=== PATIENT | male | born 1990 | race Caucasian/White ===

== ENCOUNTER 2022-03-31 18:49 | Emergency (ER) | payer SELFPAY ==
[2022-03-31 18:59] VITALS: BP 111/74; PULSE 87; RESP 17; TEMP 37.1; O2SAT 96; BMI 25.0
--- NOTE | 2022-03-31 19:51 | CTR_ITS ---
PROCEDURE INFORMATION: Exam: CT Abdomen And Pelvis Without Contrast Exam date and time: 03/31/2022 8:06 PM Age: 31 years old Clinical indication: Abdominal pain; Right; Patient HX: R flank pain w gross hematuria; Additional info: Right flank pain, hematuria TECHNIQUE: Imaging protocol: Computed tomography of the abdomen and pelvis without contrast. Radiation optimization: All CT scans at this facility use at least one of these dose optimization techniques: automated exposure control; mA and/or kV adjustment per patient size (includes targeted exams where dose is matched to clinical indication); or iterative reconstruction. COMPARISON: No relevant prior studies available. RADIATION DOSE METRICS: Total DLP (mGy-cm): 390.73 FINDINGS: Liver: Unremarkable.No mass. Gallbladder and bile ducts: Normal. No calcified stones. No ductal dilation. Pancreas: The pancreas is normal. Spleen: The spleen is normal. Adrenal glands: The adrenal glands are normal. Kidneys and ureters: There is no evidence of hydronephrosis. There is no evidence of renal calcifications. There is a 1.5 mm calculus distal right ureter at the level of the right hip joint series 3, image 186. No calculi in the left ureter or bladder. Stomach and bowel: There is no evidence of intestinal perforation or obstruction. The colon is mostly collapsed however the wall of the colon appears prominent and there is haziness of the adjacent fat concerning for mild diffuse colitis. The loops of small bowel have an appropriate appearance. Appendix: A normal appendix is identified. Intraperitoneal space: Unremarkable. No free air. No significant fluid collection. Vasculature: The aorta is normal. Lymph nodes: Unremarkable.No enlarged lymph nodes. Urinary bladder: There is nonspecific bladder wall thickening. This may be related to incomplete distention. Reproductive: Unremarkable as visualized. Bones/joints: Unremarkable. No acute fracture. Soft tissues: There is a fat-containing umbilical hernia. CT/CT kidney stone 12258 IMPRESSION: 1. There is a 1.5 mm calculus distal right ureter at the level of the right hip joint. No hydronephrosis. 2. The colon is mostly collapsed however the wall of the colon appears prominent/thickened for the degree of distension and there is haziness of the adjacent fat concerning for mild diffuse colitis. No fluid collection, abscess or free air.
--- NOTE | 2022-03-31 19:57 | ED_ITS ---
HPI - Male Genitourinary General: Chief complaint: Urogenital-Male Stated complaint: Back/side pain Time Seen by Provider: 03/31/22 19:50 Source: patient History of Present Illness: 31-year-old male with no prior history of kidney disease, or hematuria. He notes that he had an episode of bright red bloody urination last night. It was painless at the time. Today, he noted that his urine was still quite dark. He has had intermittent mild to moderate right sided low back and flank pain as well. No fever. No vomiting. No diarrhea no blood from any other orifice. No penile discharge MD Complaint: other Onset (ago): hour(s) Duration: intermittent Location: right flank Radiation: right flank Severity: moderate Quality: aching Relieving factors: none Exacerbating factors: none Associated symptoms: Reports hematuria; Deny discharge, dysuria, fevers/chills, nausea, urinary incontinence, urinary retention or vomiting Review of Systems Const: Denies: fever(s) or chills Card: Denies: chest pain Resp: Denies: dyspnea GI: Denies: abdominal pain, nausea, vomiting or diarrhea : Reports: hematuria; Denies: dysuria or urinary incontinence Musc: Reports: back pain Physical Exam Const: COMMON NORMALS: no acute distress GENERAL APPEARANCE: cooperative; not ill appearing HENMT: COMMON NORMALS: normocephalic and atraumatic HEAD & SCALP: normocephalic and atraumatic Eye: COMMON NORMALS: Equal, round and reactive pupils present and EOMs intact bilaterally PUPIL: Yes Equal, round and reactive pupils present Neck/C-Spine: GENERAL: Yes trachea midline Chest: CHEST: Yes Symmetrical chest wall rise Resp: COMMON NORMALS: normal respiratory effort, No use of accessory muscles and clear to auscultation bilaterally AUSCULTATION: clear to auscultation bilaterally Cardio: COMMON NORMALS: regular rate and regular rhythm RATE: regular rate RHYTHM: regular rhythm GI: COMMON NORMALS: Normal to inspection, nondistended, normoactive bowel sounds present, Soft to palpation and non-tender PALPATION: Yes Soft to palpation : BLADDER/KIDNEY EXAM: Yes CVA tenderness on the right Back/Pelvis: GENERAL BACK: Yes CVA tenderness Extremity: COMMON NORMALS: normal to inspection Neuro: KHADIJAH COMA SCALE: document [facility] findings Khadijah coma scale eye opening: Spontaneous [place] coma scale verbal response: Orientated Khadijah coma scale motor response: Obey commands Khadijah coma scale total score: 15 Course Vital Signs: Vital signs: Vital Signs Temperature 98.7 F 03/31/22 18:59 Pulse Rate 87 03/31/22 18:59 Respiratory Rate 17 03/31/22 18:59 Blood Pressure 111/74 03/31/22 18:59 Pulse Oximetry 96 03/31/22 18:59 Oxygen Delivery Me thod 03/31/22 18:59 MDM - Male Medical Decision Making Urinalysis shows 0-4 whites 0-4 reds. White blood cell count is 8. Hemoglobin is 15. Platelet count is normal at 275. CRP is negative. Patient has a 1.5 mm ureteral stone at the level of the hip. Likely the cause of his hematuria and mild flank pain. There is no hydronephrosis Lab Data : 03/31/22 19:50 03/31/22 19:50 Radiology Impressions Abdomen/Pelvis CT 03/31/22 19:51 IMPRESSION: 1. There is a 1.5 mm calculus distal right ureter at the level of the right hip joint. No hydronephrosis. 2. The colon is mostly collapsed however the wall of the colon appears prominent/thickened for the degree of distension and there is haziness of the adjacent fat concerning for mild diffuse colitis. No fluid collection, abscess or free air. Laboratory Results WBC 8.0 10^3/uL (4.0-10.0) 03/31/22 19:50 RBC 5.11 10^6/uL (4.1-5.3) 03/31/22 19:50 Hgb 15.6 g/dL (11.7-16.6) 03/31/22 19:50 Hct 46.7 % (42.0-52.0) 03/31/22 19:50 MCV 91.4 fl (80-94) 03/31/22 19:50 MCH 30.5 pg (28.0-34.0) 03/31/22 19:50 MCHC 33.4 g/dL (30.0-36.0) 03/31/22 19:50 RDW 12.8 % (12.1-15.1) 03/31/22 19:50 Plt Count 275 10^3/cmm (130-400) 03/31/22 19:50 MPV 10.8 fL (7.4-10.4) H 03/31/22 19:50 Neut % (Auto) 56.1 % 03/31/22 19:50 Lymph % (Auto) 31.8 % 03/31/22 19:50 [place] % (Auto) 9.5 % 03/31/22 19:50 Eos % (Auto) 2.1 % 03/31/22 19:50 Baso % (Auto) 0.4 % 03/31/22 19:50 Neut # (Auto) 4.47 10^3/uL (1.8-7.7) 03/31/22 19:50 Lymph # (Auto) 2.5 10^3/uL (0.8-4.8) 03/31/22 19:50 [place] # (Auto) 0.8 10^3/uL (0.2-0.9) 03/31/22 19:50 Eos # (Auto) 0.2 10^3/uL (0.0-0.8) 03/31/22 19:50 Baso # (Auto) 0.0 10^3/uL (0.0-0.1) 03/31/22 19:50 Nucleated RBC % (auto) 0 % 03/31/22 19:50 Nucleated RBCs # 0.0 /100WBC 03/31/22 19:50 Sodium 138 mmol/L (136-145) 03/31/22 19:50 Potassium 3.6 mmol/L (3.5-5.1) 03/31/22 19:50 Chloride 101 mmol/L (98-107) 03/31/22 19:50 Carbon Dioxide 28 mmol/L (22-29) 03/31/22 19:50 Anion Gap 12.6 (5-19) 03/31/22 19:50 BUN 9 mg/dL (6-20) 03/31/22 19:50 Creatinine 0.8 mg/dL (0.7-1.2) 03/31/22 19:50 GFR Calculation 111.3 mL/min (90-130) 03/31/22 19:50 Glucose 89 mg/dL (65-115) 03/31/22 19:50 Calculated Osmolality 284 mOsm/kg (285-295) L 03/31/22 19:50 Calcium 9.2 mg/dL (8.5-10.5) 03/31/22 19:50 Total Bilirubin 0.5 mg/dL (0.15-1.2) 03/31/22 19:50 AST 25 U/L (0-40) 03/31/22 19:50 ALT 18 U/L (0-41) 03/31/22 19:50 Alkaline Phosphatase 63 IU/L (40-130) 03/31/22 19:50 C-Reactive Protein 3.7 mg/L (0.0-4.9) 03/31/22 19:50 Total Protein 6.7 g/dL (6.6-8.7) 03/31/22 19:50 Albumin 4.5 g/dL (3.5-5.2) 03/31/22 19:50 Globulin 2.2 g/dL (1.3-4.6) 03/31/22 19:50 Urine Color Yellow (Yellow) 03/31/22 19:25 Urine Appearance Clear (CLEAR) 03/31/22 19:25 Urine pH 7 (5-7) 03/31/22 19:25 Ur Specific [place] 1.015 (1.005-1.030) 03/31/22 19:25 Urine Protein 1+ (Negative) H 03/31/22 19:25 Urine Glucose (UA) Norm (Normal) 03/31/22 19:25 Urine Ketones Negative (Negative) 03/31/22 19:25 Urine Blood Neg (Negative) 03/31/22 19:25 Urine Nitrate Negative (Negative) 03/31/22 19:25 Urine Bilirubin 1+ (Negative) H 03/31/22 19:25 Urine Urobilinogen 8 mg/dL (Negative) H 03/31/22 19:25 Ur Leukocyte Esterase Negative (Negative) 03/31/22 19:25 Urine RBC 0-4 /hpf (0-2) H 03/31/22 19:25 Urine WBC 0-4 /hpf (0-5) H 03/31/22 19:25 Ur Squamous Epith Cells 0-4 /hpf (0-5) H 03/31/22 19:25 Amorphous Sediment 1+ /hpf 03/31/22 19:25 Urine Bacteria Trace /hpf (NONE) 03/31/22 19:25 Urine Mucus 1+ /hpf 03/31/22 19:25 Discharge Plan Discharge Patient Disposition: Home Clinical Impression: Ureterolithiasis Condition: Stable Prescriptions: New tamsulosin [Flomax] 0.4 mg capsule 0.4 mg PO DAILY Qty: 7 0RF ketorolac 10 mg tablet 10 mg PO TID PRN (Reason: pain) Qty: 10 0RF Discharge Orders: Discharge ED (Routine); Ordered 03/31/22 Ordered By: River Noel Patient Instructions: Kidney Stones (ED) Activity Restrictions/Additional Instructions: Drink plenty of liquids the next 48 hours. Use medication for pain as needed. The Flomax will help you pass your stone. Return for worsening pain despite treatment, inability to urinate, vomiting liquids or medications, fever greater than 100, any other concerning symptoms Coding Level of Care Code ED Facilities Director for Jaylan Fwd Exam Comprehensive
[2022-03-31 20:03] LABS: Add Urine Microscopic? YES; Bilirubin Urine 1+ (Negative); Blood Urine Neg (Negative); Glucose Urine UA Norm (Normal); Ketones Urine Negative (Negative); Leukocyte Esterase Urine Negative (Negative); Nitrate Urine Negative (Negative); Protein Urine 1+ (Negative); Specific Gravity, Urine 1.015 (1.005-1.030); Urine Appearance Clear (CLEAR); Urine Color Yellow (Yellow); Urobilinogen Urine 8 mg/dL (Negative); pH Urine 7 (5-7)
[2022-03-31 20:04] LABS: Add Urine Culture? No; Amorphous Sediment Urine 1+ /hpf; Bacteria Urine TRACE /hpf; Mucus Urine 1+ /hpf; RBC Urine 0-4 /hpf (0-2); Squamous Epithelial Cell Urine 0-4 /hpf (0-5); WBC Urine 0-4 /hpf (0-5)
[2022-03-31 20:20] LABS: Basophils % 0.4 %; Eosinophils # 0.2 10^3/uL (0.0-0.8); Eosinophils % 2.1 %; Hematocrit 46.7 % (42.0-52.0); Hemoglobin 15.6 g/dL (11.7-16.6); Lymphocytes # 2.5 10^3/uL (0.8-4.8); Lymphocytes % 31.8 %; Mean Corpuscular HGB Conc 33.4 g/dL (30.0-36.0); Mean Corpuscular Hemoglobin 30.5 pg (28.0-34.0); Mean Corpuscular Volume 91.4 fl (80-94); Mean Platelet Volume 10.8 fL (7.4-10.4); Monocytes # 0.8 10^3/uL (0.2-0.9); Monocytes % 9.5 %; Neutrophils # 4.47 10^3/uL (1.8-7.7); Neutrophils % 56.1 %; Nucleated Red Blood Cells % 0 %; Platelet Count 275 10^3/cmm (130-400); Red Blood Count 5.11 10^6/uL (4.1-5.3); Red Cell Distribution Width 12.8 % (12.1-15.1)
[2022-03-31] MEDS: sodium chloride 0.9% 1,000 ML 999 ML IV ×2 (20:25→21:24)
[2022-03-31 20:42] LABS: Alanine Aminotransferase 18 U/L (0-41); Albumin Level 4.5 g/dL (3.5-5.2); Alkaline Phosphatase 63 IU/L (40-130); Anion Gap 12.6 (5-19); Aspartate Amino Transferase 25 U/L (0-40); Blood Urea Nitrogen 9 mg/dL (6-20); C Reactive Protein 3.7 mg/L (0.0-4.9); Calcium 9.2 mg/dL (8.5-10.5); Carbon Dioxide 28 mmol/L (22-29); Chloride 101 mmol/L (98-107); Globulin 2.2 g/dL (1.3-4.6); Glomerular Filtration Rate 111.3 mL/min (90-130); Glucose 89 mg/dL (65-115); Osmolality Calculated 284 mOsm/kg (285-295); Potassium 3.6 mmol/L (3.5-5.1); Sodium 138 mmol/L (136-145); Total Bilirubin 0.5 mg/dL (0.15-1.2); Total Protein 6.7 g/dL (6.6-8.7)
[2022-03-31 21:43] VITALS: BP 115/70; RESP 18; O2SAT 100
== END 2022-03-31 21:45 | disposition home or self-care (01) ==
PROVIDERS: Emergency Provider Emergency Medicine
DX: N20.1 Calculus of ureter (principal)
CPT/HCPCS: 74176; 80053; 81001; 85025; 86140; 96360; 99284; J7030

== ENCOUNTER 2022-09-09 08:41 | Emergency (ER) | payer SELFPAY ==
--- NOTE | 2022-09-09 08:57 | ED_ITS ---
HPI - Ear Problem General: Chief complaint: Ear Stated complaint: ear infection Time Seen by Provider: 09/09/22 08:43 History of Present Illness: Patient is a 32-year-old male comes to the ED with left ear pain. Symptoms started approximately 3 days ago. He states he is having pain in his left ear that he rates a 5 out of 10. He also endorses having some white puslike drainage from his left ear as well. He has been having nasal congestion and drainage for the past couple days leading up to her ear symptoms. Endorses subjective fevers. Denies any nausea/vomiting, cough, or any other upper respiratory symptoms. Associated symptoms: Reports ear or mastoid pain (Left ear); Denies fever(s), headache(s) or neck pain Review of Systems Const: Denies: fever(s), chills or fatigue Eyes: Denies: change in vision or eye discomfort ENMT: Reports: ear or mastoid pain (Left ear) and ear discharge (White dischar ge from left ear); Denies: throat pain, odynophagia, nasal discharge or nasal congestion Card: Denies: chest pain, palpitations, edema, swelling of feet/ankles, dyspnea on exertion or orthopnea Resp: Denies: dyspnea, productive cough or non-productive cough GI: Denies: abdominal pain, nausea, vomiting, diarrhea, constipation or hematochezia : Denies: flank pain, difficulty urinating, dysuria or hematuria Musc: Denies: neck pain, back pain or extremity swelling Skin/Breast: Denies: rash or new lesions Neuro: Denies: headache(s), numbness in extremities or weakness in extremities [facility] ED PFSH: Medical History (Updated 09/09/22 @ 11:34 by PAVEL Francois) No pertinent family history Surgical History (Updated 09/09/22 @ 11:34 by PAVEL Francois) No pertinent past surgical history Physical Exam Const: COMMON NORMALS: no acute distress, patient oriented x3 and alert GENERAL APPEARANCE: cooperative and comfortable HENMT: COMMON NORMALS: normocephalic HEAD & SCALP: normocephalic EXTERNAL AUDITORY CANAL: Abnormal EAC present EAC laterality: left Details: otic discharge Details: purulent discharge TYMPANIC MEMBRANE: TM abnormal TM laterality: left Details: erythematous and perforation Details: purulent discharge MOUTH: Normal oral and palatal mucosa present THROAT: posterior oropharynx normal and uvula midline Neck/C-Spine: COMMON NORMALS: supple GENERAL: Yes normal visual inspection Resp: COMMON NORMALS: normal respiratory effort, No retractions, No use of accessory muscles and clear to auscultation bilaterally AUSCULTATION: clear to auscultation bilaterally Cardio: COMMON NORMALS: regular rate, regular rhythm, S1 normal heart sound present, S2 normal heart sound present, No gallops present (Cardio), No clicks present (Cardio), No murmurs present (Cardio) and Peripheral pulses 2+ throughout RATE: regular rate RHYTHM: regular rhythm HEART SOUNDS: S1 normal heart sound present and S2 normal heart sound present PERIPHERAL PULSES: Peripheral pulses 2+ throughout GI: COMMON NORMALS: Normal to inspection, nondistended, normoactive bowel sounds present, Soft to palpation, non-tender and no masses PALPATION: Yes Soft to palpation : COMMON NORMALS: Yes no CVA tenderness BLADDER/KIDNEY EXAM: Yes no CVA tenderness Back/Pelvis: COMMON NORMALS: no CVA tenderness Extremity: COMMON NORMALS: normal to inspection Neuro: COMMON NORMALS: patient oriented x3 SENSORIUM/ORIENTATION: Yes alert GAIT: Yes Normal gait present Skin: GENERAL SKIN EXAM: dry skin Course Vital Signs: Vital signs: Vital Signs Temperature 97.9 F 09/09/22 09:03 Pulse Rate 83 09/09/22 09:03 Respiratory Rate 14 09/09/22 09:03 Blood Pressure 119/60 09/09/22 09:03 Pulse Oximetry 97 09/09/22 09:03 Oxygen Delivery Me thod 09/09/22 09:03 MDM - Ear Medical Decision Making Patient is a 32-year-old male comes to the ED with left ear pain. He has been having some purulent discharge as well. Vitals are stable. Exam shows otitis media with spontaneous rupture and purulent discharge. Patient was discharged home with a prescription for Ciprodex eardrops and Augmentin. Told to follow-up with PCP in the next week for reevaluation. Return to ED precautions given. Patient understood and agreed with plan. Discharge Plan Discharge Patient Disposition: Home Clinical Impression: Otitis media Qualifiers: Otitis media type: suppurative Chronicity: acute Laterality: left Recurrence: non-recurrent Spontaneous tympanic membrane rupture: with spontaneous rupture Qualified Code(s): H66.012 - Acute suppurative otitis media with spontaneous rupture of ear drum, left ear Condition: Stable Prescriptions: New Augmentin 500-125 mg tablet 1 tab PO BID 10 Days Qty: 20 0RF Ciprodex 0.3-0.1 % drops,suspension 4 drp otic (ear) BID 7 Days Qty: 7.5 0RF No Action Flomax 0.4 mg capsule 0.4 mg PO DAILY Qty: 7 0RF ketorolac 10 mg tablet 10 mg PO TID PRN (Reason: pain) Qty: 10 0RF Discharge Orders: Discharge ED (Routine); Ordered 09/09/22 Ordered By: Maikel Cowart Discharge Diet: Regular Discharge Activity: Increase activity as tolerated Patient Instructions: Ear Infection (ED) Activity Restrictions/Additional Instructions: Follow-up with medical provider as directed in the next 7 to 10 days for reevaluation. Take medications as prescribed. Return to the ER or your medical provider if condition worsens. Please read and understand discharge instruct ions. Thank you for choosing [facility] for your healthcare needs today. Please realize this is an emergency room and that we are providing you with a medical screening exam and this may not be complete and all inclusive of all the testing and or work up that you may need to determine your ailment or severity of your illness. It is very important that you follow up as instructed or that you return to the Emergency Department should you have concerns or if your condition changes or worsens in any way. Coding Level of Care Code ED File Keeper for Jaylan Serrano Exam Comprehensive
[2022-09-09 09:03] VITALS: BP 119/60; PULSE 83; RESP 14; TEMP 36.6; O2SAT 97
== END 2022-09-09 09:10 | disposition home or self-care (01) ==
PROVIDERS: Emergency Provider Physician Assistant
DX: H66.012 Acute suppurative otitis media with spontaneous rupture of ear drum, left ear (principal)
CPT/HCPCS: 99283